=== PATIENT | female | born 1975 | race Caucasian/White ===

== ENCOUNTER 2018-04-15 05:36 | Day surgery (SDC) | payer OTHER ==
[~2018-04-15] VITALS: Ht 160 cm; Wt 115.6 kg
[2018-04-15 06:03] VITALS: BP 147/71
[2018-04-15 11:03] VITALS: BP 118/89
[2018-04-15 11:55] VITALS: BP 137/80
== END 2018-04-15 12:10 | disposition home or self-care (01) ==
LOC: SDC 05:36
PROC: 0CTPXZZ Resection of Tonsils, External Approach (ICD-10-PCS; principal; 2018-04-15)
DX: J35.01 Chronic tonsillitis (principal); E66.01 Morbid (severe) obesity due to excess calories; Z68.42 Body mass index [BMI] 45.0-49.9, adult; Z88.0 Allergy status to penicillin
CPT/HCPCS: 88304; J0131; J0330; J1100; J1170; J2250; J2405; J2710; J2765; J3010; J7643; S0020